=== PATIENT | male | born 1995 | race Two or more races ===

== ENCOUNTER 2024-05-05 09:33 | Emergency (ER) | payer MEDICAID ==
[~2024-05-05] VITALS: Ht 175.3 cm; Wt 67.6 kg
[2024-05-05] MEDS ORDERED: ACET-683 PO (10:02)
[2024-05-05 10:59] LABS: RSV AMPLIFICATION NEGATIVE (NEGATIVE)
[2024-05-05 12:25] VITALS: BP 126/66; TEMP 97.2; O2SAT 97
== END 2024-05-05 12:26 | disposition home or self-care (01) ==
LOC: M ED 09:33
DX: J06.9 Acute upper respiratory infection, unspecified (principal); Z79.1 Long term (current) use of non-steroidal anti-inflammatories (NSAID)